=== PATIENT | male | born 1975 | race Caucasian/White ===

== ENCOUNTER 2017-01-28 05:36 | Day surgery (SDC) | payer BC ==
[~2017-01-28] VITALS: Ht 177.8 cm; Wt 97.7 kg
[~2017-01-28 05:36] MED LIST: ALLEGRA-D 241 TABLET PO; CRESTOR5 MG PO; MEN'S ONE DAIL1 EACH PO
[2017-01-28 06:20] VITALS: BP 136/86
[2017-01-28 12:25] VITALS: BP 133/88
[2017-01-28 13:27] VITALS: BP 131/71
[2017-01-28 15:10] VITALS: BP 116/69
== END 2017-01-28 15:25 | disposition home or self-care (01) ==
LOC: SDC 05:36
DX: J34.2 Deviated nasal septum (principal); J31.0 Chronic rhinitis; G47.33 Obstructive sleep apnea (adult) (pediatric)
CPT/HCPCS: J0131; J0330; J0690; J1100; J1170; J2250; J2405; J2765; J3010; J3301; J7050